=== PATIENT | male | born 1950 | race Caucasian/White ===

== ENCOUNTER 2019-07-06 08:41 | Day surgery (SDC) | payer OTHER ==
[2019-07-06] MEDS ORDERED: PROPOFOL 200 MG/20 ML VIAL IV ONE (08:48)
[2019-07-06] MEDS ORDERED: LACTATED RINGERS 1,000 ML IV.SOLN IV ONE (08:48)
[2019-07-06] MEDS ORDERED: LIDOCAINE HCL 2% PF 100MG/5ML VIAL IJ ONE (08:48)
--- NOTE | 2019-07-10 10:43 | GI Report ---
DATE OF PROCEDURE: 07/06/2019 REFERRING PHYSICIAN: Dr. Garg. PROCEDURE PERFORMED: Colonoscopy and cold snare polypectomy. SURGEON: Robbie Christianson M.D., Nini INDICATION FOR PROCEDURE: 68-year-old man referred for screening colonoscopy. Denies any change of bowel habits. Denies family history of colorectal cancer. PROCEDURE MEDICATION: Propofol, as per Anesthesia. DESCRIPTION OF PROCEDURE: An Olympus video colonoscope was advanced all the way to the cecum. The appendiceal orifice and terminal ileum were normal. On slow withdrawal, the cecum, ascending colon, transverse colon: No obvious intraluminal lesions noted. In the descending colon the patient has a 3 mm polyp removed with a cold snare and submitted to Pathology. A few small diverticula in the sigmoid colon. The rectum was normal. The patient tolerated the procedure well. FINDINGS: Small polyp in the descending colon, removed with cold snare. RECOMMENDATIONS: 1. High fiber diet. 2. Surveillance colonoscopy in 5 years, pending the pathology of the polyp. ROBBIE CHRISTIANSON M.D., F.Kate.CKatherineP. CHRIS/armida R: 07/10/19 Job#: [id number] Cc: [facility]arg [facility]
== END 2019-07-06 10:45 | disposition home or self-care (01) ==
LOC: OPSURG 08:41
PROVIDERS: ATTEND Internal Medicine Gastroenterology
DX: Z12.11 Encounter for screening for malignant neoplasm of colon (principal); D12.4 Benign neoplasm of descending colon
CPT/HCPCS: 45385; 88305; J2001; J2704; J7120